=== PATIENT | male | born 1985 | race Two or more races ===

== ENCOUNTER 2017-02-02 21:22 | Emergency (ER) | payer SELFPAY ==
[~2017-02-02] VITALS: Ht 167.6 cm; Wt 60.6 kg
[2017-02-03 00:06] LABS: ADD MIUA? YES; BILIRUBIN NEGATIVE; BLOOD MODERATE; COLOR YELLOW ((YELLOW)); GLUCOSE (STRIP) NEGATIVE; KETONES NEGATIVE; LEUKOCYTES NEGATIVE; NITRITE NEGATIVE; PROTEIN (STRIP) NEGATIVE; UROBILINOGEN 0.2 MG/DL (0.2-1.0)
[2017-02-03 00:14] LABS: BACTERIA NONE SEEN /HPF; EPITHELIAL CELLS NONE SEEN /HPF; MUCUS TRACE /LPF; RED BLOOD CELLS 0-5 /HPF (0-5); UCUL ADDED? NO; WHITE BLOOD CELLS 0-5 /HPF (0-5)
[2017-02-03] MEDS ORDERED: MOTRIN600 MG PO (00:21)
[2017-02-03] MEDS ORDERED: NORCO 5/3251 TABLET PO (00:21)
[2017-02-03 00:42] VITALS: BP 144/76
[2017-02-03 12:25] LABS: CHLAMYDIA TRACHOMATIS NEGATIVE; NEISSERIA GONORRHOEAE NEGATIVE
== END 2017-02-03 00:43 | disposition home or self-care (01) ==
LOC: EME 21:22 → EXP 21:22
PROVIDERS: Physician Assistant
DX: S39.94XA Unspecified injury of external genitals, initial encounter (principal); R31.9 Hematuria, unspecified; Y93.89 Activity, other specified
CPT/HCPCS: 81003; 87491; 87591; 99281; 99283